=== PATIENT | female | born 2000 | race Two or more races ===

== ENCOUNTER → 2024-08-09 | Outpatient (CLI) | payer BC, SELFPAY ==
[2024-08-09 16:34] LABS: Influenza A Ag Positive; Influenza B Ag Negative
== END | disposition home or self-care (01) ==
LOC: COPL 14:51
PROVIDERS: PCP Specialist; Referring Provider Specialist; Visit Provider Specialist
DX: Z20.828 Contact with and (suspected) exposure to other viral communicable diseases (principal); R05.9 Cough, unspecified
CPT/HCPCS: 87502